=== PATIENT | male | born 1960 | race Caucasian/White ===

== ENCOUNTER → 2016-12-14 | Day surgery (SDC) | payer OTHER ==
[~2016-12-14] VITALS: Ht 185.4 cm; Wt 133.6 kg
[~2016-12-14] MED LIST: ASPI1TAB69 PO; BACITRACIN TOP OINT 15 GM TUBE ONE; BUPIVACAINE/EPINEPHRINE 0.25% PF 30 ML VIAL ONE; COQ-100C2 PO; DO NOT ADM ANY ANTICOAGULANT DRUGS XX PRN; EPINEPHrine HCL (1:1000) 30 MG/30 ML VIAL ONE; FISH1000 PO; HYDROmorphone HCL PF 1 MG/ML VIAL IV PRN; INSULIN HUMAN REGULAR 1,000 UNITS/10 ML VIAL SQ PRN; LACTATED RINGER'S 1000 ML IV SCH; LIDOCAINE 1%/EPINEPHrine 1:100,000 SOLN 30 ML VIAL ONE; LOSA100T PO; LOVA20TA PO; METOPROLOL TARTRATE 25 MG TAB PO PRN; MINERAL OIL 10 ML VIAL ONE; MULT-135 PO; NEOSTIGMINE 3 MG/3 ML SYR IV ONE; ONDANSETRON HCL 4 MG/2 ML VIAL IV PUSH ONE; PROPOFOL 200 MG/20 ML AMP IV ONE; SODIUM CHLORID 0.9% 500 ML IV SCH; ceFAZolin 2 GM PREMIX 50 ML IV SCH; fentaNYL CITRATE 250 MCG/5 ML AMP ONE; oxyCODONE/ACETAMINOPHEN 7.5 MG/325 MG TAB PO PRN
[2016-12-14 06:32] VITALS: BP 144/86; PULSE 69; RESP 18; TEMP 98; O2SAT 98
[2016-12-14 09:45] VITALS: BP 150/86; PULSE 86; RESP 18; TEMP 98.7; O2SAT 99
--- NOTE | 2016-12-16 21:00 | MP ---
cc: SHARON RILEY M.D. DATE OF SURGERY: 12/14/2016. PREOPERATIVE DIAGNOSIS: Invasive melanoma, right mid-forearm radial aspect. POSTOPERATIVE DIAGNOSIS: Invasive melanoma, right mid-forearm radial aspect. OPERATION: 1. Excision right forearm invasive melanoma 6 cm diameter excision. 2. Full-thickness skin graft from the right groin crease. SURGEON: Sharon Riley M.D. ANESTHESIA: General. INDICATIONS FOR THE PROCEDURE: This is a 56 year-old white male with biopsy-proven Ashvin level 3, Breslow 0.6 mm thickness melanoma in the right mid forearm on the radial aspect. The lesion is approximately a centimeter in diameter and most of the lesion had been removed by the biopsy. The patient underwent a detailed explanation of the melanoma behavior and surgery techniques including a referral for a possible sentinel lymph node biopsy, which was not required, the reconstruction with a splint or full-thickness graft was discussed. The patient during surgery was noted to have two large caliber nerves passing through the area, which were preserved and a full-thickness skin graft was used. DESCRIPTION OF THE PROCEDURE IN DETAIL: The patient was brought to THE operating room was in the supine position. Anesthesia was started. Prep and drape was done. IV antibiotic had been given. Time-out was called and completed. The preoperative markings were used. The area was tumesced with lidocaine 1% with epinephrine and saline mixture. The skin was incised and the underlying fat was slanted outward slightly and then dissected with blunt dissection to look for any vessels and nerves. The radial sensory nerve was found easily and protected. A large vein was also in the area and this was protected as well. The rest of the fatty tissue was developed down to the fascia including a portion of the fascia was taken. Hemostasis was completed. A full thickness graft was harvested from the right side lower abdomen just above the inguinal crease. It was applied to the defect and sutured in place around the trunk. The donor site was closed with Vicryl internal stitches. The patient remained stable through the procedure. Intraoperative blood loss was less than a couple of ccs. No complications. signed, not fully reviewed MD NURIA Chopra/CASSIE 8:39 AM 8:54 PM EMRE
== END | disposition home or self-care (01) ==
LOC: HSDC 05:40
PROVIDERS: ATTEND Plastic Surgery
DX: C43.61 Malignant melanoma of right upper limb, including shoulder (principal)
CPT/HCPCS: 00400; 11606; 15220; 88305; J0690; J2405; J2710; J3010; J7120; J0171